=== PATIENT | male | born 1955 | race Caucasian/White ===

== ENCOUNTER 2019-12-13 11:08 | Observation (INO) ==
[2019-12-13] MEDS ORDERED: Fluticasone NASAL SPRAY 50MCG 16 gm SPRAY BTL BOTH NARES PRN (12:59)
[2019-12-13 13:12] LABS: ABS Eosinophils 0.1 10^3/ul (0-0.6); ABS Lymphocytes 1.7 10^3/ul (1.0-4.8); ABS Monocytes 0.6 10^3/ul (0-0.8); ABS Neutrophils 4.1 10^3/ul (1.5-7.7); Eosinophil % 0.8 %; Hematocrit 40 % (42-52); Hemoglobin 13.6 g/dL (14.0-18.0); Mean Corpuscular HGB Conc 34 g/dL (31-36); Mean Corpuscular Hemoglobin 31 pg (27-31); Mean Corpuscular Volume 90 fL (80-94); Mean Platelet Volume 8.5 fL (7.4-10.4); Nucleated Red Blood Cells % 0.1; Platelet Count 208 10^3/uL (150-450); Red Blood Count 4.42 10^6 /uL (4.18-5.48); Red Cell Distribution Width 14 % (10-15); White Blood Count 6.5 10^3/uL (3.5-10.8)
[2019-12-13 13:46] LABS: Albumin 4.3 g/dL (3.2-5.2); Albumin/Globulin Ratio 1.5 (1-3); BUN/Creatinine Ratio 21.8 (8-20); Calcium 9.6 mg/dL (8.6-10.3); EGFR African American 89.4 (>60); EGFR Non-African American 73.9 (>60); Globulin 2.8 g/dL (2-4); Potassium 4.3 mmol/L (3.5-5.0); Total Bilirubin 0.4 mg/dL (0.2-1.0); Total Protein 7.1 g/dL (6.4-8.9)
[2019-12-13 23:52] VITALS: BP 150/55
[2019-12-14] MEDS ORDERED: Cholecalciferol (VIT D3) 1,000 unit TAB PO SCH (09:00)
== END 2019-12-13 23:45 | disposition home or self-care (01) ==
LOC: MEDTELE 11:08 → ED 11:08 → MEDTELE 13:52
PROVIDERS: ADMIT Student in an Organized Health Care Education/Training Program; ATTEND Internal Medicine

== ENCOUNTER 2023-01-17 14:30 | Observation (INO) ==
[2023-03-11] MEDS ORDERED: fentaNYL 100 mcg/2 ml 50 MCG/ML VIAL IV PRN (11:29)
[2023-03-11] MEDS ORDERED: Naloxone 0.4 mg VIAL 0.4 mg/ml 1 ml VIAL IV PRN (11:29)
[2023-03-11] MEDS ORDERED: Ondansetron 4 mg VIAL 2 MG/ML 2 ml VIAL IV PRN (11:29)
[2023-03-12] MEDS ORDERED: Lactated Ringers 1000 ml BAG 1,000 ML IV SCH (06:00)
[2023-03-12] MEDS ORDERED: Buffered Lidocaine 1% SYRIN 1 ml INTRADERM ONE (06:00)
[2023-03-12 07:30] LABS: INR 1.2 (0.83-1.13)
[2023-03-12] MEDS ORDERED: ceFAZolin 2 GM PREMIX 2 GM/50 ML BAG ONE (07:51)
[2023-03-12] MEDS ORDERED: Tranexamic Acid 1 GM/100ML BAG 2,000 MG/200 ML BAG IV ONE (07:51)
[2023-03-12 07:54] LABS: Rapid COVID-19 Molecular Undetected (Undetected)
[2023-03-12] MEDS ORDERED: Midazolam 2 mg/2 ml VIAL 1 mg/ml 2 ml VIAL (2 mg) ONE (08:02)
[2023-03-12] MEDS ORDERED: fentaNYL 100 mcg/2 ml 50 MCG/ML VIAL ONE ×3 (08:02→12:53)
[2023-03-12] MEDS ORDERED: Rocuronium 50 mg VIAL 10 mg/ml 5 ml VIAL (50 mg) ONE (08:45)
[2023-03-12] MEDS ORDERED: Propofol 10 MG/ML 20 ML BTL ONE (08:46)
[2023-03-12] MEDS ORDERED: Lidocaine 2% PF 5 ML VIAL ONE (08:46)
[2023-03-12] MEDS ORDERED: ROPIVACAINE 5 MG/ML 30 ML BTL (0.5%) ONE (08:58)
[2023-03-12] MEDS ORDERED: KETAMINE HCL 10 MG/ML 20 ml VIAL (200 MG) ONE (10:02)
[2023-03-12] MEDS ORDERED: HYDROmorphone 0.5 MG/0.5 ML SYRINGE ONE (10:03)
[2023-03-12] MEDS ORDERED: Glycopyrrolate IV 0.2 MG/ML 1 ML VIAL ONE (10:19)
[2023-03-12] MEDS ORDERED: Dexamethasone IV 4 MG/ML VIAL 1 ml VIAL ONE (10:19)
[2023-03-12] MEDS ORDERED: Ondansetron ODT 4 mg TAB 4 MG TAB PO PRN (10:51)
[2023-03-12] MEDS ORDERED: Ondansetron 4 mg VIAL 2 MG/ML 2 ml VIAL IV PRN (10:51)
[2023-03-12] MEDS ORDERED: Magnesium Hydroxide LIQ 30 ML UDC PO PRN (10:51)
[2023-03-12] MEDS ORDERED: Morphine 2 MG/ML SYRINGE IV PRN (10:51)
[2023-03-12] MEDS ORDERED: Lactulose 30 ml UDC PO PRN (10:51)
[2023-03-12] MEDS: Lactated Ringers 1000 ml BAG 1,000 ML IV SCH (14:02)
[2023-03-12] MEDS: ceFAZolin 1 GM ADVAN 1 GM in NS 0.9% 50 ML 50 ML IVPB SCH (17:03)
[2023-03-12] MEDS: Magnesium Hydroxide LIQ 30 ML UDC PO SCH (20:38)
[2023-03-13] MEDS: Lactated Ringers 1000 ml BAG 1,000 ML IV SCH (00:23)
[2023-03-13] MEDS: ceFAZolin 1 GM ADVAN 1 GM in NS 0.9% 50 ML 50 ML IVPB SCH ×2 (01:54→10:43)
[2023-03-13 05:56] LABS: Platelet Count 220 10^3/uL (150-450)
[2023-03-13 06:00] LABS: INR 1.2 (0.83-1.13)
[2023-03-13 06:13] LABS: Calcium 8.9 mg/dL (8.6-10.3); Creatinine, Serum 0.92 mg/dL (0.67-1.17); Potassium 4.4 mmol/L (3.5-5.0)
[2023-03-13 06:20] LABS: Hematocrit 38.6 % (38-53); Hemoglobin 13.1 g/dL (13.2-16.3); Mean Platelet Volume 8.8 fL (7.5-11.2)
[2023-03-13] MEDS ORDERED: Pneumococcal Vac 23-Polyvalent IM ONE (09:00)
[2023-03-13] MEDS ORDERED: Vitamin THERAPEUTIC TAB PO SCH (09:00)
[2023-03-13] MEDS: Magnesium Hydroxide LIQ 30 ML UDC PO SCH (09:06)
[2023-03-13] MEDS ORDERED: Enoxaparin 100 MG/ML SYR SUBCUT SCH (12:00)
[2023-03-13 14:24] VITALS: BP 108/52
== END 2023-03-13 15:30 | disposition home or self-care (01) ==
LOC: INTOOBSV 03-12 06:40 → AA 03-12 06:40 → SSU 03-12 13:54
PROVIDERS: ADMIT Orthopaedic Surgery Adult Reconstructive Orthopaedic Surgery; ATTEND Orthopaedic Surgery Adult Reconstructive Orthopaedic Surgery